=== PATIENT | female | born 1990 | race Caucasian/White ===

== ENCOUNTER 2019-01-31 11:27 | Emergency (ER) | payer SELFPAY ==
[~2019-01-31] VITALS: Ht 190.5 cm; Wt 83.9 kg
[2019-01-31 11:30] VITALS: BP_SYST 124
[2019-01-31] MEDS ORDERED: NACL 0.9% 1,000 ML IV ONE (11:47)
[2019-01-31] MEDS ORDERED: MORPHINE 4 MG/ML INJ. SYRINGE IVP ONE ×4 (12:00→18:00)
[2019-01-31] MEDS ORDERED: ONDANSETRON HCL 4 MG/2 ML VIAL IVP ONE (12:00)
--- NOTE | 2019-01-31 12:20 | NUR ---
PATIENT CAME IN COMPLAINING OF SHARP PAIN IN ABD 10/10 RADIATING TO BACK SINCE LAST NIGHT. PATIENT STATES SHE WAS AT A [employer] YESTERDAY AND ATE TO MUCH. PATIENT STATES SHE THREW UP LAST NIGHT. PATIENT STATES SHE HAD 3 EPISODES OF DIARRHEA WITH LOOSE STOOL. PATIENT STATES SHE TOOK NAPROXEN, AND 3 TUMS THAT DIDNT HELP. PATIENT IS ALERT AND ORIENTED X4.
--- NOTE | 2019-01-31 12:28 | NUR ---
# 20 gauge angiocath placed to RIGHT AC. Use of asceptic technique. Opsite placed over site. Blood return noted. Blood for lab drawn from site. Flushed with 10 cc of normal saline. No evidence of infiltration noted. Patient tolerated well.
[2019-01-31 12:35] LABS: BASOPHILS % (AUTO) 0.2 % (0.0-2.0); HEMATOCRIT 39.8 % (36-48); HEMOGLOBIN 13.3 g/dL (12.0-16.0); LYMPHOCYTES # (AUTO) 0.9 K/uL (1.0-5.5); LYMPHOCYTES % (AUTO) 6.7 % (20.5-51.5); MEAN CORPUSCULAR HEMOGLOBIN 31 pg (27-31); MEAN CORPUSCULAR HGB CONC 34 % (32-36); MEAN CORPUSCULAR VOLUME 93 fL (79.0-98.0); MONOCYTES # (AUTO) 0.6 K/uL (0.0-1.0); MONOCYTES % (AUTO) 4.5 % (1.7-9.3); NEUTROPHILS % (AUTO) 88.6 % (40.0-70.0); PLATELET COUNT (AUTO) 248 K/uL (130-430); RED BLOOD CELL COUNT(AUTO) 4.26 MIL/uL (4.2-6.2); RED CELL DISTRIBUTION WIDTH 13.2 % (9.0-15.0); WHITE BLOOD COUNT (AUTO) 13.5 K/uL (4.8-10.8)
[2019-01-31 12:43] LABS: CALCIUM 9.2 mg/dL (8.4-11.0); CREATININE 0.85 mg/dL (0.55-1.30); POTASSIUM 3.7 mmol/L (3.5-5.1)
[2019-01-31 12:48] LABS: ALBUMIN 4.1 g/dL (3.4-4.8); TOTAL BILIRUBIN 1.2 mg/dL (0.0-1.0)
[2019-01-31 13:00] LABS: PROTHROMBIN TIME 10.1 SECS (9.5-12.5)
--- NOTE | 2019-01-31 13:30 | NUR ---
PATIENT LEFT TO CT VIA GURNEY IN STABLE CONDITION.
[2019-01-31 14:09] LABS: BILIRUBIN,URINE NEGATIVE (NEGATIVE); BLOOD, URINE NEGATIVE (NEGATIVE); CLARITY/URINE CLEAR (CLEAR); COLOR,URINE YELLOW (YELLOW); GLUCOSE,URINE NEGATIVE (NEGATIVE); KETONES,URINE NEGATIVE (NEGATIVE); LEUKOCYTE ESTERASE ,URINE NEGATIVE (NEGATIVE); NITRITE, URINE NEGATIVE (NEGATIVE); PH,URINE 7.5 (5.0-8.0); PROTEIN URINE NEGATIVE (NEGATIVE); UROBILINOGEN,URINE 0.2 (0.2-1.0)
--- NOTE | 2019-01-31 15:18 | NUR ---
PATIENT COMPLAINING OF PAIN. DR GRACIA AWARE.
--- NOTE | 2019-01-31 16:07 | NUR ---
PATIENT CRYING IN BED OF PAIN. DR GRACIA AWARE.
--- NOTE | 2019-01-31 17:22 | NUR ---
PATIENT BACK FROM [facility] IN STABLE CONDITION.
[2019-01-31] MEDS ORDERED: NACL 0.9% 2,000 ML IV ONE (17:30)
--- NOTE | 2019-01-31 19:08 | NUR ---
Patient given written and verbal discharge instructions and verbalizes understanding. ER MD discussed with patient the results and treatment provided. Patient in stable condition. ID arm band removed. IV catheter removed intact and dressing applied, no active bleeding. Rx of tylenol with codine and zofran given. Patient educated on pain management and to follow up with PMD. Pain Scale 3/10 tolerable. Opportunity for questions provided and answered. Medication side effect fact sheet provided.
[2019-01-31 19:12] VITALS: BP_SYST 127
== END 2019-01-31 19:12 | disposition home or self-care (01) ==
LOC: SED 11:27
DX: N83.201 Unspecified ovarian cyst, right side (principal); R19.7 Diarrhea, unspecified
CPT/HCPCS: 36415; 74176; 76830; 76857; 80053; 81003; 82150; 83605; 83690; 85025; 85610; 85730; 87040; 96361; 96374; 96375; 96376; 99284; J2270; J2405; J7030